=== PATIENT | male | born 1965 | race Asian ===

== ENCOUNTER 2019-01-04 11:50 | Emergency (ER) | payer OTHER ==
[~2019-01-04] VITALS: Ht 180.3 cm; Wt 91.0 kg
[2019-01-04] MEDS ORDERED: HYDROCODONE/ACETAMINOPHEN 5/325MG TABLET PO ONE (12:30)
[2019-01-04] MEDS ORDERED: LIDOCAINE HCL/PF 1% 10 MG/ML 5ML VIAL IJ ONE (12:30)
[2019-01-04] MEDS ORDERED: LORAZEPAM 1MG TABLET PO ONE (12:30)
[2019-01-04 15:13] VITALS: BP 131/87
== END 2019-01-04 15:23 | disposition home or self-care (01) ==
LOC: ER 11:50
DX: S01.01XA Laceration without foreign body of scalp, initial encounter (principal); S13.4XXA Sprain of ligaments of cervical spine, initial encounter; I10 Essential (primary) hypertension; V49.49XA Driver injured in collision with other motor vehicles in traffic accident, initial encounter; Y93.89 Activity, other specified; Y92.89 Other specified places as the place of occurrence of the external cause; Y99.8 Other external cause status
CPT/HCPCS: 12001; 70450; 72070; 72125; 99284; A4217; J3490; Z7610